=== PATIENT | female | born 1940 | race Caucasian/White ===

== ENCOUNTER 2023-09-24 11:02 | Observation (INO) | payer MEDICARE, BC ==
[~2023-09-24] VITALS: Ht 157.5 cm; Wt 75.0 kg
[2023-09-24] VITALS (9 sets, daily range): BP systolic 120–155; BP diastolic 51–66; PULSE 73–78; RESP 16–20; TEMP 97.8–98.8; O2SAT 95–100
[~2023-09-24 11:02] MED LIST: ACET325T55 PO; ADV50250 INH; ALBU17AE26 IH; AMI200T PO; APIX5TAB3 PO; CALC600T22 PO; CHOL10006 PO; CYAN250010 PO; FERR-29 PO; FLUT1BLS16 IH; METF-1203 PO; METO-395 PO; OMEG-15 PO; PANT40TA54 PO; PIOG15TA8 PO; RAMI10CA69 PO; SIMV-42 PO; ZOLP10TA PO
[2023-09-24 11:42] LABS: ALANINE AMINOTRANSFERASE 22 U/L (12-78); ALBUMIN 3.2 G/DL (3.4-5.0); ALBUMIN/GLOBULIN RATIO 0.9 (1.1-1.5); ALKALINE PHOSPHATASE 84 IU/L (46-116); ANION GAP 13 (8-16); ASPARTATE AMINO TRANSFERASE 18 U/L (10-37); BILIRUBIN,TOTAL 0.3 MG/DL (0.1-1.0); BLOOD UREA NITROGEN 37 MG/DL (7-18); CALCIUM 8.9 MG/DL (8.5-10.1); CHLORIDE 97 MMOL/L (99-107); CREATININE 1.32 MG/DL (0.40-0.90); GLUCOSE 221 MG/DL (70-104); POTASSIUM 4.7 MMOL/L (3.5-5.1); SODIUM 130 MMOL/L (135-145); TOTAL CARBON DIOXIDE 20.3 MMOL/L (24-32); TOTAL PROTEIN 6.7 G/DL (6.4-8.2); eGFR 39 ML/MIN
[2023-09-24 11:49] LABS: BASOPHILS # (AUTO) 0.1 X10'3 (0-0.2); BASOPHILS % (AUTO) 1.3 % (0-1); EOSINOPHILS % (AUTO) 0.3 % (0-6); LYMPHOCYTES # (AUTO) 0.4 X10'3 (1.1-4.8); LYMPHOCYTES % (AUTO) 4.7 % (21-51); MEAN CORPUSCULAR HEMOGLOBIN 31.1 PG (27.0-31.0); MEAN CORPUSCULAR HGB CONC 31.8 g/dL (33.0-36.5); MEAN CORPUSCULAR VOLUME 97.7 FL (78-98); MEAN PLATELET VOLUME 7.6 FL (7.4-10.4); MONOCYTES # (AUTO) 0.8 X10'3 (0-0.9); MONOCYTES % (AUTO) 8.7 % (2-12); NEUTROPHILS # (AUTO) 7.6 X10'3 (1.8-7.7); PLATELET COUNT 383 X10'3 (140-440); PRO BRAIN NATRIURETIC PEPTIDE 369 PG/ML (0-450); RED BLOOD COUNT 2.16 X10'6 (4.20-5.60); RED CELL DISTRIBUTION WIDTH 19.3 % (11.5-14.5)
[2023-09-24 11:57] LABS: HEMATOCRIT 21.1 % (35.0-45.0); HEMOGLOBIN 6.7 g/dl (12.0-16.0)
[2023-09-24 12:27] LABS: ELLIPTOCYTES FEW; HYPOCHROMASIA 1+; PLATELET ESTIMATE NORMAL; POLYCHROMASIA 1+; TEAR DROP CELLS 1+
[2023-09-24] MEDS ORDERED: magnesium 4gm in 100ml NS 100 ML IV PRN (12:35)
[2023-09-24] MEDS ORDERED: potassium Cl 20 mEq SR tablet PO PRN ×2 (12:35)
[2023-09-24] MEDS ORDERED: mag hydrox/Alum hydrox/simeth 30ml oral suspension PO PRN (12:35)
[2023-09-24] MEDS ORDERED: magnesium hydroxide 30ml (MOM) UD suspension PO PRN (12:35)
[2023-09-24] MEDS ORDERED: potassium Cl 40MEQ/1/2NS 520ml 520 ML IV PRN (12:35)
[2023-09-24] MEDS ORDERED: magnesium Cl slow-release 64mg tablet PO PRN (12:35)
[2023-09-24] MEDS ORDERED: magnesium 2GM in 50ml NS 50 ML IV PRN (12:35)
[2023-09-24] MEDS ORDERED: ondansetron 4mg rapidly disintigrating tab PO PRN (12:35)
[2023-09-24] MEDS ORDERED: ondansetron/PF 4mg/2ml inj IV PRN (12:35)
[2023-09-24] MEDS ORDERED: acetaminophen 325mg tablet PO PRN (12:35)
[2023-09-24 12:49] LABS: MAGNESIUM 1.6 MG/DL (1.5-2.4)
[2023-09-24 12:53] LABS: APTT 28 SECONDS (22-32); PROTHROMBIN TIME 10.4 SECONDS (9.0-12.0)
[2023-09-24] MEDS: normal saline 1000ml 1,000 ML IV SCH (13:03)
[2023-09-24] MEDS: acetaminophen 325mg tablet PO PRN (13:45)
[2023-09-24] MEDS ORDERED: pantoprazole 40MG/NS 100ML BAG 100 ML IV SCH (16:00)
[2023-09-24] MEDS: pantoprazole 40MG/NS 100ML BAG 100 ML IV SCH (17:41)
[2023-09-24] MEDS: K and/or MAG REPLACEMENT MC SCH (20:00)
[2023-09-24] MEDS: MESSAGE TO PHARMACY PO ONE (22:10)
[2023-09-24] MEDS ORDERED: DEXTROSE 15 GM of carb/4 tabs (each vial/BOTTLE has 4 tablets) PO PRN ×2 (22:10)
[2023-09-24] MEDS ORDERED: dextrose 50%-water 50ml dispensing syringe IV PRN ×2 (22:10)
[2023-09-24] MEDS ORDERED: glucagon, human recombinant 1mg kit SUBCUT PRN (22:10)
[2023-09-24] MEDS: insulin glargine (Lantus) pen - multi-dose SQ SCH (22:49)
[2023-09-25] VITALS (9 sets, daily range): BP systolic 125–157; BP diastolic 55–67; PULSE 75–90; RESP 15–18; TEMP 97.2–99.4; O2SAT 97–99
[2023-09-25 07:44] LABS: MEAN CORPUSCULAR HEMOGLOBIN 30.4 PG (27.0-31.0); MEAN CORPUSCULAR HGB CONC 32.6 g/dL (33.0-36.5); MEAN CORPUSCULAR VOLUME 93.2 FL (78-98); MEAN PLATELET VOLUME 7.1 FL (7.4-10.4); PLATELET COUNT 305 X10'3 (140-440); RED BLOOD COUNT 2.25 X10'6 (4.20-5.60); RED CELL DISTRIBUTION WIDTH 19.9 % (11.5-14.5); WHITE BLOOD COUNT 5.1 X10'3 (4.5-11.0)
[2023-09-25 07:53] LABS: HEMOGLOBIN 6.8 g/dl (12.0-16.0)
[2023-09-25 08:07] LABS: ALBUMIN 2.7 G/DL (3.4-5.0); ANION GAP 9 (8-16); BLOOD UREA NITROGEN 23 MG/DL (7-18); BUN/CREATININE RATIO 23.2 (10.0-20.0); CALCIUM 8.2 MG/DL (8.5-10.1); CHLORIDE 104 MMOL/L (99-107); CREATININE 0.99 MG/DL (0.40-0.90); GLUCOSE 167 MG/DL (70-104); MAGNESIUM 1.6 MG/DL (1.5-2.4); POTASSIUM 4.2 MMOL/L (3.5-5.1); SODIUM 136 MMOL/L (135-145); TOTAL CARBON DIOXIDE 23.5 MMOL/L (24-32); eCRCL 35 ML/MIN; eGFR 54 ML/MIN
[2023-09-25] MEDS: insulin Lispro (HumaLOG) vial - multi-dose SQ SCH (14:20)
[2023-09-25 18:01] LABS: HEMATOCRIT 27.1 % (35.0-45.0); HEMOGLOBIN 8.8 g/dl (12.0-16.0); MEAN CORPUSCULAR HEMOGLOBIN 30.2 PG (27.0-31.0); MEAN CORPUSCULAR HGB CONC 32.7 g/dL (33.0-36.5); MEAN CORPUSCULAR VOLUME 92.3 FL (78-98); MEAN PLATELET VOLUME 7.5 FL (7.4-10.4); PLATELET COUNT 307 X10'3 (140-440); RED BLOOD COUNT 2.93 X10'6 (4.20-5.60); WHITE BLOOD COUNT 7.2 X10'3 (4.5-11.0)
[2023-09-25] MEDS ORDERED: APIX5TAB3 PO (18:19)
== END 2023-09-25 19:30 | disposition home or self-care (01) ==
LOC: ER 11:03 → INTOOBSV 12:38 → ED HOLD 12:38 → EDBEDREQ 16:34 → PCU 3S 17:18
PROVIDERS: ADMIT Family Medicine; ATTEND Family Medicine
DX: K29.00 Acute gastritis without bleeding (principal); D62 Acute posthemorrhagic anemia; I48.0 Paroxysmal atrial fibrillation; I12.9 Hypertensive chronic kidney disease with stage 1 through stage 4 chronic kidney disease, or unspecified chronic kidney disease; E11.22 Type 2 diabetes mellitus with diabetic chronic kidney disease; N18.9 Chronic kidney disease, unspecified; J45.909 Unspecified asthma, uncomplicated; E78.5 Hyperlipidemia, unspecified; G47.00 Insomnia, unspecified; G62.9 Polyneuropathy, unspecified; H93.19 Tinnitus, unspecified ear; I35.0 Nonrheumatic aortic (valve) stenosis; K21.9 Gastro-esophageal reflux disease without esophagitis; K63.5 Polyp of colon; K44.9 Diaphragmatic hernia without obstruction or gangrene; K76.89 Other specified diseases of liver; M19.90 Unspecified osteoarthritis, unspecified site; M72.2 Plantar fascial fibromatosis; Z79.01 Long term (current) use of anticoagulants; Z79.51 Long term (current) use of inhaled steroids; Z79.84 Long term (current) use of oral hypoglycemic drugs; Z79.899 Other long term (current) drug therapy; Z87.891 Personal history of nicotine dependence; Z87.19 Personal history of other diseases of the digestive system
CPT/HCPCS: 36415; 36430; 71045; 80048; 80053; 82948; 83735; 83880; 84484; 85008; 85025; 85027; 85610; 85730; 86885; 86900; 86901; 86920; 87081; 93005; 96361; 96365; 96366; 99285; C9113; G0378; J1815; J3490; J7030; J7040; P9016

== ENCOUNTER 2023-10-05 09:37 | Emergency (ER) | payer MEDICARE, BC ==
[~2023-10-05] VITALS: Ht 157.5 cm; Wt 72.3 kg
[~2023-10-05 09:37] MED LIST changes: -METF-1203 PO; -PIOG15TA8 PO
[2023-10-05 10:10] LABS: BASOPHILS % (AUTO) 0.5 % (0-1); EOSINOPHILS # (AUTO) 0.1 X10'3 (0-0.9); EOSINOPHILS % (AUTO) 1.4 % (0-6); HEMATOCRIT 30.3 % (35.0-45.0); HEMOGLOBIN 9.6 g/dl (12.0-16.0); LYMPHOCYTES # (AUTO) 0.5 X10'3 (1.1-4.8); LYMPHOCYTES % (AUTO) 7.7 % (21-51); MEAN CORPUSCULAR HEMOGLOBIN 30.5 PG (27.0-31.0); MEAN CORPUSCULAR HGB CONC 31.8 g/dL (33.0-36.5); MEAN CORPUSCULAR VOLUME 95.8 FL (78-98); MEAN PLATELET VOLUME 6.9 FL (7.4-10.4); MONOCYTES # (AUTO) 0.7 X10'3 (0-0.9); NEUTROPHILS # (AUTO) 5.5 X10'3 (1.8-7.7); NEUTROPHILS % (AUTO) 80.4 % (42-75); PLATELET COUNT 381 X10'3 (140-440); RED BLOOD COUNT 3.16 X10'6 (4.20-5.60); WHITE BLOOD COUNT 6.8 X10'3 (4.5-11.0)
[2023-10-05 10:27] LABS: GLUCOSE 170 MG/DL (70-104)
[2023-10-05 10:28] LABS: ALBUMIN 3.3 G/DL (3.4-5.0); ANION GAP 11 (8-16); BLOOD UREA NITROGEN 14 MG/DL (7-18); BUN/CREATININE RATIO 14.7 (10.0-20.0); CHLORIDE 97 MMOL/L (99-107); CREATININE 0.95 MG/DL (0.40-0.90); LIPASE 36 U/L (16-77); POTASSIUM 4.5 MMOL/L (3.5-5.1); SODIUM 131 MMOL/L (135-145); TOTAL CARBON DIOXIDE 22.7 MMOL/L (24-32); eCRCL 36 ML/MIN; eGFR 56 ML/MIN
[2023-10-05 10:35] LABS: CALCIUM 9.2 MG/DL (8.5-10.1)
[2023-10-05] MEDS ORDERED: ONDA8TAB13 PO (14:15)
[2023-10-05] MEDS ORDERED: TRAM50TA2 PO (14:15)
[2023-10-05 14:23] VITALS: BP 169/76; PULSE 57; RESP 18; TEMP 99; O2SAT 96
[2023-10-05 17:37] LABS: OCCULT BLOOD STOOL NEGATIVE (Neg)
== END 2023-10-05 14:26 | disposition home or self-care (01) ==
LOC: ER 09:38
DX: R19.5 Other fecal abnormalities (principal); D64.9 Anemia, unspecified; Z88.2 Allergy status to sulfonamides; Z79.899 Other long term (current) drug therapy
CPT/HCPCS: 36415; 80048; 82272; 83690; 85025; 86885; 86900; 86901; 99283

== ENCOUNTER 2025-02-26 17:36 | Inpatient (IN) | payer MEDICARE, BC ==
[~2025-02-26] VITALS: Ht 154.9 cm; Wt 69.2 kg
[~2025-02-26 17:36] MED LIST changes: +ONDA-245 PO; +POLY17PO10 PO; -RAMI10CA69 PO; +RAMI10CA78 PO; +ZOLP-679 PO; -ZOLP10TA PO
--- NOTE | 2025-02-26 17:59 | Physician Documentation ---
History of Present Illness ~ Chief Complaint: Edema Stated Complaint: POSS BLOOD CLOT Time Seen by MD: 18:07 HPI This is an 85-year-old female who presents with extremity swelling, patient reports that she was seen here recently and had blood transfusion for anemia. Patient was seen by primary care provider who recommended she present to the emergency department. Medication Reconciliation Allergies: Coded Allergies: Sulfa (Sulfonamide Antibiotics) (Verified Allergy, Unknown, 09/26/22) Scheduled Amiodarone Hcl (Cordarone), 200 MG PO DAILY Calcium Carbonate (Calcium), 1 TAB PO DAILY, (Reported) Cholecalciferol (Vitamin D), 1 CAP PO DAILY, (Reported) Cyanocobalamin (Vitamin B-12) (Vitamin B12), 1 TAB PO DAILY, (Reported) Ferrous Sulfate (Iron), 2 TAB PO Q12H, (Reported) Fluticasone/Salmeterol* (Advair 250-50 Diskus*), 1 PUFFS INH Q12H, (Reported) Metoprolol Succinate (Metoprolol Succinate), 50 MG PO DAILY [place]-3/Dha/Epa/Fish Oil (Fish Oil 1,400 Mg Softgel), 1 CAP PO DAILY, (Reported) Ondansetron 8mg ODT (Ondansetron Odt), 1 TAB PO Q8H Pantoprazole Sodium (Pantoprazole Sodium), 40 MG PO BID Polyethylene Glycol 3350* (Miralax*), 1 PACKET PO HS Ramipril (Ramipril), 1 CAP PO ONCE, (Reported) Simvastatin* (Zocor*), 1 TAB PO DAILY, (Reported) Zolpidem Tartrate (Ambien), 1 TAB PO HS, (Reported) Scheduled PRN Acetaminophen (Acetaminophen), 1 TAB PO QDAY PRN PRN for pain or fever, (Reported) Albuterol (Albuterol), 1 PUFFS IH Q4H PRN for SOB or wheezing, (Reported) Discontinued Medications Apixaban (Eliquis), 0.5 TAB PO Q12H Discontinued Reason: patient no longer taking Fluticasone/Umeclidin/Vilanter (Trelegy Ellipta 200-62.5-25), 1 PUFF IH HS, (Reported) Discontinued Reason: patient no longer taking Metoprolol Succinate (Metoprolol Succinate), 25 MG PO DAILY Past Medical History Past Medical History: *CARDIOVASCULAR*, Anemia Past Surgical History: noncontributory Patient History: FH: COPD (chronic obstructive pulmonary disease) FATHER FH: colon cancer MOTHER FH: diabetes mellitus FH: heart disease CHILD CHILD FH: liver cancer MOTHER Drug Use: none Lives In: Home Physical Exam Vital Signs: Temperature: 97.5, Source: Temporal, Heart Rate: 144, Respiratory Rate: 20, BP: 179/92, Pulse Oximetry: 100, Weight: 69.200 Oxygen Flow Rate: 0 General Appearance VITALS: Reviewed and as above. GENERAL: Alert, nontoxic appearing, no apparent distress. HEENT: RESPIRATORY: No increased work of breathing, no respiratory distress, speaking in full clear sentences CHEST: CV: Edema to bilateral lower extremities and bilateral hands BACK: GI: MUSCULOSKELETAL: SKIN: NEURO: PSYCH: Progress Results/Orders Results/Orders Orders - JUAN MO MD Vl Venous (02/26/25 18:32) Page Hospitalist (02/26/25 18:39) Fill Out Med Reconciliation (02/26/25 18:39) Completed Orders - JUAN MO MD Metoprolol Succinate Er Tablet (Toprol X (02/26/25 18:15) Vl Venous (02/26/25 18:32) Procalcitonin (02/26/25 18:34) Diltiazem-Ns 100mg/100ml (Cardizem-Ns 10 (02/26/25 18:40) Vital Signs 02/26/25 02/26/25 02/26/25 17:40 18:10 19:02 Temp 97.5 Pulse 144 146 137 Resp 20 16 B/P (MAP) 179/92 158/80 (106) 164/84 Pulse Ox 100 96 O2 Flow Rate 0 0 Laboratory Tests Test 02/26/25 17:56 White Blood Count 14.2 H Red Blood Count 3.35 L Hemoglobin 9.8 L Hematocrit 29.5 L Mean Corpuscular Volume 88.2 Mean Corpuscular Hemoglobin 29.3 Mean Corpuscular Hemoglobin Concent 33.2 Red Cell Distribution Width 18.0 H Platelet Count 516 H Mean Platelet Volume 7.0 L Neutrophils (%) (Auto) 86.8 H Lymphocytes (%) (Auto) 3.9 L Monocytes (%) (Auto) 8.7 Eosinophils (%) (Auto) 0.5 Basophils (%) (Auto) 0.1 Neutrophils # (Auto) 12.3 H Lymphocytes # (Auto) 0.6 L Monocytes # (Auto) 1.2 H Eosinophils # (Auto) 0.1 Basophils # (Auto) 0.0 CBC Comment Prothrombin Time 10.2 INR International Normalized Ratio 1.0 Activated Partial Thromboplast Time 24 D-Dimer 2.10 H D-Dimer Comment Coagulation Comments Sodium Level 132 L Potassium Level 3.9 Chloride Level 96 L Carbon Dioxide Level 24.5 Anion Gap 12 Blood Urea Nitrogen 17 Creatinine 1.23 H Estimated GFR/1.73 m2 42 BUN/Creatinine Ratio 13.8 Glucose Level 257 H Calcium Level 8.5 Phosphorus Level 2.9 Magnesium Level 1.3 L Total Bilirubin 0.5 Aspartate Amino Transf (AST/SGOT) 20 Alanine Aminotransferase (ALT/SGPT) 21 Alkaline Phosphatase 96 Troponin I High Sensitivity 26 Pro-B-Type Natriuretic Peptide 8114 H Total Protein 6.5 Albumin 2.6 L Globulin 3.9 Albumin/Globulin Ratio 0.7 L Procalcitonin 0.07 Chemistry Comments EKG/XRAY/CT/US/VASC/MRI EKG : Additional Comment EKG interpreted by myself shows time of 1751, rate 143, AFib RVR, right bundle-branch block, no ST changes Chest X-Ray : Additional Comments Exam: CHEST,SINGLE VIEW CHEST RADIOGRAPH Indication: CP Technique: Single frontal view of the chest was obtained Comparison: DI CHEST,SINGLE VIEW on DOS: 02/23/25, DI CHEST,SINGLE VIEW on DOS: 09/24/23, DI CHEST,SINGLE VIEW on DOS: 09/12/23 FINDINGS: Lines and Tubes: None Lungs: Left basilar opacity with obscuration of the left hemidiaphragm No pneumothorax. Cardiomediastinal contours: Unremarkable. Mitral annulus calcification. Bones: No acute osseous abnormality. IMPRESSION: Left basilar opacity with obscuration of the left hemidiaphragm may be from pleural effusion/atelectasis/ pneumonia. Medical Decision Making Findings Patient presents to the emergency room with diffuse edema and tachycardic irregular heartbeat. Differentials include but are not limited to CHF, kidney failure, AFib RVR, electrolyte disturbances, fluid overload therefore emergent labs and imaging indicated. Chest x-ray shows effusion and patient has AFib RVR. Diltiazem drip initiated. Acute kidney injury also noted. I believe this is related to uncontrolled AFib. She is not anticoagulated we can not cardiovert her. We will admit for further treatment. Departure Admitted to Inpatient Unit: yes, to hospitalist Impression: Primary Impression: Atrial fibrillation with RVR Additional Impressions: Acute kidney injury Fluid overload Condition: Guarded Referrals: NO PRIMARY CARE PROVIDER (PCP) Signature Scribe Signature: No scribe Attestation: The note accurately reflects work and decisions made by me.Juan Mo MD 02/26/25 18:48 ANNABELLA ALATORRE [facility] Feb 26, 2025 17:59 JUAN MO MD Feb 26, 2025 18:45
[2025-02-26 18:18] LABS: BASOPHILS % (AUTO) 0.1 % (0-1); LYMPHOCYTES # (AUTO) 0.6 X10'3 (1.1-4.8); MEAN CORPUSCULAR HGB CONC 33.2 g/dL (33.0-36.5); MONOCYTES # (AUTO) 1.2 X10'3 (0-0.9); NEUTROPHILS % (AUTO) 86.8 % (42-75)
[2025-02-26 18:21] LABS: EOSINOPHILS # (AUTO) 0.1 X10'3 (0-0.9); EOSINOPHILS % (AUTO) 0.5 % (0-6); HEMATOCRIT 29.5 % (35.0-45.0); HEMOGLOBIN 9.8 g/dl (12.0-16.0); LYMPHOCYTES % (AUTO) 3.9 % (21-51); MEAN CORPUSCULAR HEMOGLOBIN 29.3 PG (27.0-31.0); MEAN CORPUSCULAR VOLUME 88.2 FL (78-98); MONOCYTES % (AUTO) 8.7 % (2-12); NEUTROPHILS # (AUTO) 12.3 X10'3 (1.8-7.7); PLATELET COUNT 516 X10'3 (140-440); RED BLOOD COUNT 3.35 X10'6 (4.20-5.60); WHITE BLOOD COUNT 14.2 X10'3 (4.5-11.0)
[2025-02-26] MEDS: metoprolol succinate 25mg (24-HOUR) SR. Tablet PO ONE (18:23)
[2025-02-26 18:27] LABS: ALANINE AMINOTRANSFERASE 21 U/L (12-78); ALBUMIN 2.6 G/DL (3.4-5.0); ALBUMIN/GLOBULIN RATIO 0.7 (1.1-1.5); ALKALINE PHOSPHATASE 96 IU/L (46-116); ANION GAP 12 (8-16); ASPARTATE AMINO TRANSFERASE 20 U/L (10-37); BILIRUBIN,TOTAL 0.5 MG/DL (0.1-1.0); BLOOD UREA NITROGEN 17 MG/DL (7-18); BUN/CREATININE RATIO 13.8 (10.0-20.0); CALCIUM 8.5 MG/DL (8.5-10.1); CHLORIDE 96 MMOL/L (99-107); CREATININE 1.23 MG/DL (0.40-0.90); GLUCOSE 257 MG/DL (70-104); POTASSIUM 3.9 MMOL/L (3.5-5.1); SODIUM 132 MMOL/L (135-145); TOTAL CARBON DIOXIDE 24.5 MMOL/L (24-32); TOTAL PROTEIN 6.5 G/DL (6.4-8.2); eCRCL 26 ML/MIN; eGFR 42 ML/MIN
--- NOTE | 2025-02-26 18:31 | RADIOLOGY REPORT ---
CHEST RADIOGRAPH Indication: CP Technique: Single frontal view of the chest was obtained Comparison: DI CHEST,SINGLE VIEW on DOS: 02/23/25, DI CHEST,SINGLE VIEW on DOS: 09/24/23, DI CHEST,SING LE VIEW on DOS: 09/12/23 FINDINGS: Lines and Tubes: None Lungs: Left basilar opacity with obscuration of the left hemidiaphragm No pneumothorax. Cardiomediastinal contours: Unremarkable. Mitral annulus calcification. Bones: No acute osseous abnormality. IMPRESSION: Left basilar opacity with obscuration of the left hemidiaphragm may be from pleural effusion/atelecta sis/ pneumonia.
[2025-02-26 18:33] LABS: PRO BRAIN NATRIURETIC PEPTIDE 8114 PG/ML (0-450)
[2025-02-26] MEDS: diltiazem-NS 100mg/100ml 100 ML IV SCH (19:02)
[2025-02-26] MEDS ORDERED: acetaminophen 325mg tablet PO PRN ×2 (19:15)
[2025-02-26] MEDS ORDERED: morphine 2 MG/ML inj. syringe IV PRN ×2 (19:15)
[2025-02-26] MEDS ORDERED: magnesium sulf-water 2g/50mL 50 ML IV PRN (19:15)
[2025-02-26] MEDS ORDERED: mag hydrox/Alum hydrox/simeth 30ml oral suspension PO PRN (19:15)
[2025-02-26] MEDS ORDERED: HYDROcodone/acetaminophen 10/325mg tab PO PRN (19:15)
[2025-02-26] MEDS ORDERED: potassium Cl 40MEQ/1/2NS 520ml 520 ML IV PRN (19:15)
[2025-02-26] MEDS ORDERED: HYDROcodone/acetaminophen 5mg/325mg tablet PO PRN (19:15)
[2025-02-26] MEDS ORDERED: potassium Cl 20 mEq SR tablet PO PRN (19:15)
[2025-02-26] MEDS ORDERED: ondansetron/PF 4mg/2ml inj IV PRN (19:15)
[2025-02-26] MEDS ORDERED: magnesium sulf-water 4G/100mL 100 ML IV PRN (19:15)
[2025-02-26 19:40] LABS: APTT 24 SECONDS (22-32); PROTHROMBIN TIME 10.2 SECONDS (9.0-12.0)
[2025-02-26] MEDS: PERFLUTREN PROTEIN-A MICROSPHR (Optison) 0.22 MG/ML 3ML VIAL IV ONE (19:41)
[2025-02-26] MEDS: K and/or MAG REPLACEMENT MC SCH (20:00)
--- NOTE | 2025-02-26 20:19 | VASCULAR REPORT ---
Bilateral lower extremity venous duplex Clinical History: Pain Comparison: None Technique: Duplex Doppler evaluation of the deep venous systems of both lower extremities from the common femora l veins to the popliteal veins including color Doppler and spectral/pulsed waveform analysis was perf ormed. Findings: RIGHT SIDE: The common femoral vein demonstrates appropriate compressibility and waveform variability. There is compressibility/patency of the great saphenous vein at the proximal thigh. The femoral vein demonstrates appropriate compressibility and waveform variability. The deep femoral vein demonstrates appropriate compressibility and waveform variability. The popliteal vein demonstrates appropriate compressibility and waveform variability. There is normal compressibility at the tibioperoneal trunk. Intraluminal thrombus and present in the gastrocnemius veins. LEFT SIDE: The common femoral vein demonstrates appropriate compressibility and waveform variability. There is compressibility/patency of the great saphenous vein at the proximal thigh. The femoral vein demonstrates appropriate compressibility and waveform variability. The deep femoral vein demonstrates appropriate compressibility and waveform variability. The popliteal vein demonstrates appropriate compressibility and waveform variability. There is normal compressibility at the tibioperoneal trunk. Impression: No right or left femoropopliteal venous thrombosis. Thrombus is present in two right gastrocnemius veins.
--- NOTE | 2025-02-26 20:39 | HISTORY AND PHYSICAL-Residence ---
History & Physical Providers to CC Resident Creating Document: OLAYINKA JUDD, JULIANNE ~ History of Present Illness Reason for Admit\Complaint: Bilateral lower extremity swelling History of Present Illness A 85-year-old female(informant: Ms. Rona Vargas, daughter, next in kin) with past medical history of the atrial fibrillation, bronchial asthma, type 2 diabetes mellitus, hypertension, GI bleed with anemia presented to the ER with a chief complaints of swelling of both lower legs since Monday. He endorses swelling of both lower leg along with generalized swelling of the body. She visited her PCP, Dr. Quentin Garcia on this afternoon for swelling. Endorses irregular heartbeat, palpitations for a brief period after coming out of the clinic. She had a recent admission at [facility] for recurrent GI bleed, anemia, generalized weakness, fall and discharged on this Monday. Endorses exaggerated GI bleed significant drop in hemoglobin after having a one dose of Eliquis which was started for AFib. She do reports leaking of IV in the left upper extremity the ER. She denied chest pain, shortness of breath, pain abdomen, abdominal distention fever, cough, pain in bilateral leg. Discussed code status with the patient and the patient wants to be full code Allergies: Coded Allergies: Sulfa (Sulfonamide Antibiotics) (Verified Allergy, Unknown, 09/26/22) Home Medications Home Medications Active Miralax* (Polyethylene Glycol) 1 Packet Packet 1 Packet PO HS 30 Days Metoprolol Succinate 25 Mg Tab.sr.24h 50 Mg PO DAILY 30 Days Ondansetron Odt (Ondansetron HCl) 8 Mg Tab.rapdis 1 Tab PO Q8H Cordarone (Amiodarone HCl) 200 Mg Tablet 200 Mg PO DAILY 30 Days Pantoprazole Sodium 40 Mg Tablet.dr 40 Mg PO BID Take 40 mg p.o. twice a day for 1 month then drop it down to 40 mg once a day. Reported Advair 250-50 Diskus* (Salmeterol Xinafoate/Fluticasone) 1 Puff Inh 1 Puffs INH Q12H 30 Days Acetaminophen 325 Mg Tablet 1 Tab PO QDAY PRN PRN 30 Days Vitamin D (Cholecalciferol) 1,000 Unit Capsule 1 Cap PO DAILY 30 Days Fish Oil 1,400 Mg Softgel ([place]-3/Dha/Epa/Fish Oil) 1 Each Capsule.dr 1 Cap PO DAILY 30 Days Iron (Ferrous Sulfate) 325 Mg Tablet 2 Tab PO Q12H 30 Days Calcium (Calcium Carbonate) 600 Mg Tablet 1 Tab PO DAILY 30 Days Vitamin B12 (Cyanocobalamin (Vitamin B-12)) 2,500 Mcg Tablet 1 Tab PO DAILY 30 Days Ambien (Zolpidem Tartrate) 10 Mg Tablet 1 Tab PO HS Albuterol 17 Gm Aerosol 1 Puffs IH Q4H PRN Zocor* (Simvastatin) 20 Mg Tablet 1 Tab PO DAILY Ramipril 10 Mg Capsule 1 Cap PO ONCE Past Medical History Past Medical History Hypertension Type 2 Diabetes mellitus Anemia with GI bleed Severe esophagitis/gastritis Esophageal candidiasis Bronchial Asthma Aortic Stenosis AFib Past Surgical History Surgical History Comment Left shoulder arthroscopy Family History Family History: FH: COPD (chronic obstructive pulmonary disease) FATHER FH: colon cancer MOTHER FH: diabetes mellitus FH: heart disease CHILD CHILD FH: liver cancer MOTHER Past Social History Social History Comment Denied smoking, alcohol , illicit drug use He do reports allergy to alcohol Smoking: Non-Smoker Drug Use: None Lives with: Alone Lives In: Home ROS All Other Systems: Reviewed and Negative ROS Reviewed in full and negative except positive pertinent as in HPI Exam Vitals: Vital Signs Date Time Temp Pulse Resp B/P (MAP) Pulse Ox O2 Delivery O2 Flow Rate FiO2 02/26/25 19:44 130 125/70 02/26/25 19:31 22 02/26/25 19:22 98 02/26/25 18:10 0 02/26/25 17:40 97.5 General: Awake , alert, and oriented x4, in mild distress HEENT: Atraumatic, normocephalic, EOMI, anicteric sclera ; pink conjunctiva. JVD is seen. Neck: Trachea midline. Supple, full range of motion, no JVD Cardiac: Irregular rhythm, regular rate . No gallop or rub. Ejection Systolic murmur of grade 2-3 out of six in mitral, tricuspid, aortic area. Respiratory: Equal breath sounds bilaterally, no tachypnea, no wheezing ,rub or rales, Chest wall is symmetric and without deformity. Gastrointestinal: Abdomen symmetric, non-distended, soft, non-tender, normal bowel sounds x4 quadrant, normoactive, no hepatosplenomegaly Musculoskeletal: Bilateral 1+ pedal edema is present. mild bruit on left lower extremity. Left upper extremity swollen. Neurological: Speech is clear, alert, and oriented x 4. No motor or sensory deficit, deep tendon reflexes normal, cerebellar intact. Cranial nerves II-XII intact. Skin: Warm and moist. Bilateral stasis eczema is present. 2 healed Scabs on left leg. reddish discoloration will with the left lower leg suggestive of non blanchable purpura. Diagnostic Data Last Recorded Lab Results: 02/26/25 17502/26/25 1756 Diagnostic Data: Laboratory Tests Test 02/26/25 17:56 Prothrombin Time 10.2 SECONDS (9.0-12.0) INR International Normalized Ratio 1.0 INR Activated Partial Thromboplast Time 24 SECONDS (22-32) D-Dimer 2.10 MG/L FEU (0-0.50) H D-Dimer Comment Coagulation Comments Advance Care Planning Advanced Care planning: Add on additional 30 min Additional Plan AFib with RVR Heart rate is in 140s EKG showing AFib with RVR of heart rate 143, right bundle branch block, no ST changes We discontinue diltiazem drip and then switched to amiodarone drip Not on anticoagulation because of very high risk of GI bleed and significant drop of hemoglobin after initiation of the Eliquis. We will continue amiodarone 200 mg p.o. b.i.d. after medication & when AFib reverted back to normal sinus rhythm. Venous thromboembolism Right gastrocnemius venous thrombus Bilateral venous Doppler showed Thrombus is present in two right gastrocnemius veins. We are not anticoagulating with heparin because of the high risk of GI bleed and with moderate anemia Patient may be a candidate for IVC filters. Patient may need to transferred to higher level of care for IVC filter placement. Possible Acute systolic heart failure Chest x-ray impression: Left basilar opacity with obscuration of the left hemidiaphragm may be from pleural effusion/atelectasis/ pneumonia EKG is showing heart rate of 143, irregular rhythm, AFib with RVR, right bundle branch ProBNP is elevated 8114 ,more than 2256 on 02/19/2025 Echocardiogram is ordered & previous echocardiogram on 09/14/2023 showed left vertebral ejection fraction of 66 5%. Mild concentric hypertrophy. Moderate stenosis Received Lasix 40 mg IV and we are continuing Lasix 40 mg IV b.i.d. dose. Continuing ramipril 10 mg, metoprolol 50 mg, ESEQUIEL Hyponatremia Hypochloremia Serum creatinine is 1.23 Sodium is 132 on chloride is 96, potassium is 3.9 Continue to monitor CMP Type 2 diabetes mellitus Ordered A1c Blood glucose is 257 On insulin hyperglycemic hypoglycemic insulin protocol with Lantus and medium dose Humalog We will continue to monitor blood glucose with a target of 140-180 Hypertension Received Lasix 40 and metoprolol 50 We will continue ramipril 10 mg, metoprolol 50 mg Continue to monitor blood pressures with a target of less than 130 Anemia secondary to GI bleed Not actively bleeding H & H is 9.8 and 29.5 Continuing ferrous sulfate 325 mg, calcium, vitamin-D, B12, pantoprazole 40 mg Ordered stool occult & will follow up with the results Asthma Held albuterol in view of tachycardia On ipratropium nebulization q.6h p.r.n. and fluticasone inhalers Moderate Aortic stenosis Ordered echocardiogram on we will follow up with the results Code status: Full code Diet: Heart healthy diet PT: Ordered Prognosis: Guarded Olayinka Judd IM resident Date of Service: Feb 26, 2025 Billing Provider: BRUCE TREJO MD, VENKATESH, RES Feb 26, 2025 20:39
[2025-02-26] MEDS: docusate sod 100mg capsule PO SCH (21:36)
[2025-02-26] MEDS: furosemide 10 MG/1 ML 10ml inj IV ONE (21:36)
[2025-02-26] MEDS ORDERED: glucagon, human recombinant 1mg kit SUBCUT PRN (21:50)
[2025-02-26] MEDS ORDERED: dextrose 50%-water 50ml dispensing syringe IV PRN ×2 (21:50)
[2025-02-26] MEDS ORDERED: DEXTROSE 15 GM of carb/4 tabs (each vial/BOTTLE has 4 tablets) PO PRN ×2 (21:50)
[2025-02-26] MEDS: simvastatin 20mg tablet PO SCH (22:00)
[2025-02-26 22:11] LABS: MAGNESIUM 1.3 MG/DL (1.5-2.4); PHOSPHORUS 2.9 MG/DL (2.3-4.5)
[2025-02-26 22:15] VITALS: BP 135/90; PULSE 139; RESP 23; TEMP 98; O2SAT 99
[2025-02-26] MEDS: insulin glargine (Lantus) pen - multi-dose SQ SCH (22:30)
[2025-02-26 22:45] VITALS: BP 138/92; PULSE 139; RESP 22
[2025-02-26 22:51] LABS: ALANINE AMINOTRANSFERASE 18 U/L (12-78); ALBUMIN 2.5 G/DL (3.4-5.0); ALBUMIN/GLOBULIN RATIO 0.7 (1.1-1.5); ALKALINE PHOSPHATASE 84 IU/L (46-116); ASPARTATE AMINO TRANSFERASE 18 U/L (10-37); BILIRUBIN,DIRECT 0.2 MG/DL (0-0.3); BILIRUBIN,TOTAL 0.4 MG/DL (0.1-1.0); FREE T4 (FREE THYROXINE) 1.88 NG/DL (0.73-1.40); THYROID STIMULATING HORMONE 0.54 ulU/ml (0.34-4.50); TOTAL PROTEIN 6.1 G/DL (6.4-8.2)
[2025-02-26 23:00] VITALS: BP 136/92; PULSE 139; RESP 22
[2025-02-26] MEDS: zolpidem 5mg tablet PO SCH (23:11)
[2025-02-26] MEDS: heparin, porcine 5000 units/ml vial SQ SCH (23:13)
[2025-02-26 23:15] VITALS: BP 164/108; PULSE 133; RESP 21
[2025-02-26 23:23] VITALS: PULSE 120; RESP 18; O2SAT 96
[2025-02-26 23:30] VITALS: BP 126/78; PULSE 120; RESP 23
[2025-02-27] VITALS (24 sets, daily range): BP systolic 115–153; BP diastolic 9–91; PULSE 59–131; RESP 14–25; TEMP 97.4–97.6; O2SAT 96–99
[2025-02-27 01:36] LABS: HEMATOCRIT 27.9 % (35.0-45.0); HEMOGLOBIN 9.4 g/dl (12.0-16.0); MEAN CORPUSCULAR HEMOGLOBIN 29.1 PG (27.0-31.0); MEAN CORPUSCULAR HGB CONC 33.5 g/dL (33.0-36.5); MEAN CORPUSCULAR VOLUME 86.9 FL (78-98); MEAN PLATELET VOLUME 6.9 FL (7.4-10.4); PLATELET COUNT 439 X10'3 (140-440); RED BLOOD COUNT 3.21 X10'6 (4.20-5.60); RED CELL DISTRIBUTION WIDTH 17.6 % (11.5-14.5); WHITE BLOOD COUNT 16.4 X10'3 (4.5-11.0)
[2025-02-27 01:59] LABS: ALANINE AMINOTRANSFERASE 20 U/L (12-78); ALBUMIN 2.3 G/DL (3.4-5.0); ALBUMIN/GLOBULIN RATIO 0.7 (1.1-1.5); ALKALINE PHOSPHATASE 77 IU/L (46-116); ANION GAP 8 (8-16); ASPARTATE AMINO TRANSFERASE 12 U/L (10-37); BILIRUBIN,TOTAL 0.4 MG/DL (0.1-1.0); BLOOD UREA NITROGEN 19 MG/DL (7-18); BUN/CREATININE RATIO 18.3 (10.0-20.0); CALCIUM 8.7 MG/DL (8.5-10.1); CHLORIDE 97 MMOL/L (99-107); CHOL/HDL RATIO 1.7 (0.00-4.99); CHOLESTEROL 121 MG/DL (0-200); CREATININE 1.04 MG/DL (0.40-0.90); GLUCOSE 182 MG/DL (70-104); HDL CHOLESTEROL 72 MG/DL (35-60); LDL CHOLESTEROL 35 MG/DL (50-100); MAGNESIUM 1.3 MG/DL (1.5-2.4); POTASSIUM 3.3 MMOL/L (3.5-5.1); SODIUM 133 MMOL/L (135-145); TOTAL CARBON DIOXIDE 28.4 MMOL/L (24-32); TOTAL PROTEIN 5.8 G/DL (6.4-8.2); TRIGLYCERIDES 79 MG/DL (20-135); eCRCL 30 ML/MIN; eGFR 50 ML/MIN
[2025-02-27] MEDS ORDERED: amiodarone 50MG/ML inj IV ONE (02:40)
[2025-02-27] MEDS ORDERED: amiodarone inj. 450 MG in dextrose 5%-water 241 ML IV SCH (02:47)
[2025-02-27] MEDS: amiodarone 150mg/dext, iso-os 100 ML IV ONE (03:17)
[2025-02-27] MEDS: potassium Cl 20 mEq SR tablet PO PRN (03:29)
[2025-02-27] MEDS: magnesium Cl slow-release 64mg tablet PO PRN (03:29)
[2025-02-27] MEDS: amiodarone/D5 360MG/200ML BAG 200 ML IV SCH (03:39)
--- NOTE | 2025-02-27 06:01 | ELECTROCARDIOGRAPH REPORT ---
[facility] Test Date: 2025-02-26 Test Time: 17:51:17 Pat Name: FAVIAN VILLA Department: EMERGENCY ROOM Room: [place] [address] A Gender: F Floral Clerk: : 1940 Requested By: ANNABELLA ALATORRE Order Number: [id number] Reading MD: Dr. Demarco Mullen Measurements Intervals [place] Rate: 143 P: 0 LA: 0 QRS: -70 QRSD: 138 T: 39 QT: 330 QTc: 509 Interpretive Statements Wide-QRS tachycardia RBBB and LAFB Electronically Signed On 02-28-2025 18:24:[address] Demarco Mullen Please click the below link to view image of tracing.
[2025-02-27 06:36] LABS: BASOPHILS % (AUTO) 0.3 % (0-1); EOSINOPHILS # (AUTO) 0.1 X10'3 (0-0.9); EOSINOPHILS % (AUTO) 0.8 % (0-6); HEMATOCRIT 26.9 % (35.0-45.0); HEMOGLOBIN 8.8 g/dl (12.0-16.0); LYMPHOCYTES # (AUTO) 0.5 X10'3 (1.1-4.8); LYMPHOCYTES % (AUTO) 4.8 % (21-51); MEAN CORPUSCULAR HEMOGLOBIN 28.7 PG (27.0-31.0); MEAN CORPUSCULAR HGB CONC 32.7 g/dL (33.0-36.5); MEAN CORPUSCULAR VOLUME 87.6 FL (78-98); MEAN PLATELET VOLUME 6.9 FL (7.4-10.4); NEUTROPHILS # (AUTO) 9.3 X10'3 (1.8-7.7); NEUTROPHILS % (AUTO) 85.1 % (42-75); PLATELET COUNT 414 X10'3 (140-440); RED BLOOD COUNT 3.07 X10'6 (4.20-5.60); RED CELL DISTRIBUTION WIDTH 17.5 % (11.5-14.5)
[2025-02-27] MEDS: INSULIN LISPRO 100 UNIT/ML INSULN.PEN MULTI-DOSE SQ SCH ×2 (07:00→23:00)
[2025-02-27] MEDS: metoprolol succinate 25mg (24-HOUR) SR. Tablet PO SCH (09:14)
[2025-02-27] MEDS: cyanocobalamin 500mcg tablet PO SCH (09:14)
[2025-02-27] MEDS: ferrous sulfate 325mg tablet PO SCH (09:15)
[2025-02-27] MEDS: calcium carbonate/vitamin D3 tablet PO SCH (09:15)
[2025-02-27] MEDS: pantoprazole 40mg Tablet.DR PO SCH (09:15)
[2025-02-27] MEDS: OMEGA-3/DHA/EPA/FISH OIL 1 EACH CAPSULE.DR PO SCH (09:15)
[2025-02-27] MEDS: amiodarone 200mg tablet PO SCH (09:16)
[2025-02-27] MEDS: cholecalciferol (vitamin D3) 1,000 unit (25mcg) tablet PO SCH (09:17)
[2025-02-27] MEDS: furosemide 10 MG/1 ML 10ml inj IV SCH (09:18)
[2025-02-27] MEDS: ipratropium 0.5 MG/2.5ML nebule IH PRN (10:32)
[2025-02-27] MEDS ORDERED: heparin 10,000 units/1 ML INJ IV PRN (11:05)
[2025-02-27] MEDS: heparin 10,000 units/1 ML INJ IV ONE (12:05)
[2025-02-27] MEDS: heparin 25,000 UNIT/250ml bag 250 ML IV PRN (12:17)
[2025-02-27] MEDS: MESSAGE TO NURSING IV ONE ×2 (12:17→20:10)
[2025-02-27 12:29] LABS: BASOPHILS # (AUTO) 0.1 X10'3 (0-0.2); BASOPHILS % (AUTO) 0.5 % (0-1); EOSINOPHILS # (AUTO) 0.1 X10'3 (0-0.9); EOSINOPHILS % (AUTO) 0.6 % (0-6); HEMATOCRIT 26.3 % (35.0-45.0); HEMOGLOBIN 8.6 g/dl (12.0-16.0); LYMPHOCYTES # (AUTO) 0.5 X10'3 (1.1-4.8); MEAN CORPUSCULAR HEMOGLOBIN 28.7 PG (27.0-31.0); MEAN CORPUSCULAR HGB CONC 32.8 g/dL (33.0-36.5); MEAN CORPUSCULAR VOLUME 87.4 FL (78-98); MEAN PLATELET VOLUME 7.3 FL (7.4-10.4); MONOCYTES # (AUTO) 1.1 X10'3 (0-0.9); MONOCYTES % (AUTO) 9.2 % (2-12); NEUTROPHILS # (AUTO) 10.3 X10'3 (1.8-7.7); NEUTROPHILS % (AUTO) 85.7 % (42-75); PLATELET COUNT 389 X10'3 (140-440); RED CELL DISTRIBUTION WIDTH 17.8 % (11.5-14.5); WHITE BLOOD COUNT 12.1 X10'3 (4.5-11.0)
[2025-02-27 12:41] LABS: APTT 23 SECONDS (22-32); PROTHROMBIN TIME 10.3 SECONDS (9.0-12.0)
--- NOTE | 2025-02-27 18:19 | CARDIOLOGY REPORT ---
APPROVED REPORT EXAM: Comprehensive 2D, Doppler, and color-flow Echocardiogram. Patient Location: 302 Blood Pressure: 115/91 mmHg Heart Rate: 77 bpm Indications Congestive Heart Failure ProBNP: 8114 Atrial Fibrillation Right Bundle Branch Block Hypertension Diabetes Edema CORPORATE JOB TITLES: Laxmi Carolina MD Previous ECHO: 11/14/24, BVC, EF: 60; modAS with LAURENCE: 1.16; GRAD: 46 / 24; PKV: 3.1; m-modMS, mitra n GRAD: 7; m-modMR; mTR; modLAE 2D Dimensions LA Diam4.5 cm IVSd 0.9 (0.7-1.1cm) LVDd 4.7 cm PWd 1.1 (0.7-1.1cm) IVSs 1.7 (0.8-1.2cm) LVDs 2.6 (2.5-4.0cm) PWs 1.4 (0.8-1.2cm) LVOT Diameter 1.92 (1.8-2.4cm) LVEF(%) 75.9 (>50%) Ao Asc Diam.3.16 cm IVC 18.32 mmFS (%) 44.7 % SV 78.2 ml CO 5.5 L/min M-Mode Dimensions Left Atrium(MM) 3.88 (2.5-4.0cm) Aortic Root 3.00 (2.2-3.7cm) Aortic Cusp Exc 1.03 (1.5-2.0cm) MV EPSS 1.6 (<0.5cm) Aortic Valve AoV Peak Daniel. 317.2 cm/s AoV VTI 69.8 cm AO Peak GR. 40.2 mmHg AO Mean GR. 22 mmHg LVOT VTI 34.97 cm LVOT Peak Daniel. 136.1 cm/s LAURENCE(VTI)/BSA 1.44 cm2/m2 LAURENCE (VTI) 1.44 cm2 Mitral Valve MV E Velocity 154.2 cm/s MV Peak Gr. 11 mmHg MV DECEL TIME 280 ms MV A Velocity 99.9 cm/s MV Mean Gr. 4 mmHg MV PHT 76 ms E/A Ratio 1.5 MVA (PHT) 2.89 cm2 MV WNdu156.3 cm/sMV VMean91.9 cm/s MVA VTI2.61 cm2MV VTI38.6 cm TDI Lateral E' P. V10.61 cm/s Medial E' P. V 8.87 cm/s E/Lateral E' 14.5 E/Medial E' 17.4 Tricuspid Valve TR P. Velocity 326 cm/s RAP ESTIMATE 10 mmHg TR Peak Gr. 43 mmHg RVSP 53 mmHg LEFT VENTRICLE Normal LV size and wall thickness. Overall systolic function is normal. Overall LVEF is 70-75%. RIGHT VENTRICLE Right ventricle is mildly dilated with adequate function. Estimated PA systolic pressure of 53 mm of mercury ATRIA Left atrium is moderately dilated. AORTIC VALVE Trileaflet AV is moderately stenotic. LAURENCE is measured at 1.44 cmsq. Peak / mean gradients of 40 / 22 mmHG. Peak velocity is measured at 3.17 m/sec. No regurgitation. MITRAL VALVE Mitral valve leaflets are thickened with moderate annular calcification and mild stenosis. Peak / mitra n gradients are 11 / 4 mmHg. Calcified chordae noted. Moderate eccentric regurgitation anteriorly dir ected. TRICUSPID VALVE The tricuspid valve is normal in structure with moderate regurgitation. PULMONIC VALVE The pulmonary valve is normal in structure with physiologic insufficiency. GREAT VESSELS The aortic root is normal in size. The ascending aorta is normal in size. IVC is normal in size and c ollapses less than 50% with inspiration. PERICARDIUM Normal pericardium. No effusion. Other Information Study Quality: Adequate Conclusion Overall LVEF is 70-75%. Normal LV size and wall thickness. Overall systolic function is normal. Right ventricle is mildly dilated with adequate function. Estimated PA systolic pressure of 53 mm of mercury Trileaflet AV is moderately stenotic. LAURENCE is measured at 1.44 cmsq. Peak / mean gradients of 40 / 2 2 mmHG. Peak velocity is measured at 3.17 m/sec. No regurgitation. Mitral valve leaflets are thickened with moderate annular calcification and mild stenosis. Peak / me an gradients are 11 / 4 mmHg. Calcified chordae noted. Moderate eccentric regurgitation anteriorly directed. The tricuspid valve is normal in structure with moderate regurgitation. Normal pericardium. No effusion.
--- NOTE | 2025-02-27 18:58 | PROGRESS NOTE ---
Daily Progress Note Providers to CC ~ Antibiotic Timeout Antibiotic Ordered?: No Subjective I saw the patient and discussed everything all labs and diagnostic workup and further care plan in presence of patient and patient's son ( who is a POA as per patient ) . Patient was discharged very recently on February 25, 2024 that she went to primary care doctor's office for monitoring of her CBC count they noticed swelling over lower legs more on right side. Further workup done in ER which showed signs of right lower extremity DVT. ( Thrombus is present in two right gastrocnemius veins. ) . Patient was started at night on subcutaneous heparin q.8 hours which was stopped due to risk of GI bleeding by night provider. After discussing risk , benefit and alternative of treatment with patient and her son in detail heparin drip was started in patient's son in patient agreed with the plan. I answered all questions to patient's satisfaction after meaningful discussion with the patient and her son. Potential complications of heparin drip discussed. Objective Vital Signs Date Time Temp Pulse Resp B/P (MAP) Pulse Ox O2 Delivery O2 Flow Rate FiO2 02/27/25 17:00 61 25 153/69 (97) Room Air 02/27/25 15:00 97.4 98 02/27/25 10:38 0.0 21 ECHO- Conclusion Overall LVEF is 70-75%. Normal LV size and wall thickness. Overall systolic function is normal. Right ventricle is mildly dilated with adequate function. Estimated PA systolic pressure of 53 mm of mercury Trileaflet AV is moderately stenotic. LAURENCE is measured at 1.44 cmsq. Peak / mean gradients of 40 / 22 mmHG. Peak velocity is measured at 3.17 m/sec. No regurgitation. Mitral valve leaflets are thickened with moderate annular calcification and mild stenosis. Peak / mean gradients are 11 / 4 mmHg. Calcified chordae noted. Moderate eccentric regurgitation anteriorly directed. The tricuspid valve is normal in structure with moderate regurgitation. Normal pericardium. No effusion. Result Diagram: 02/27/25 1146 02/27/25 0120 General-patient not in any acute distress, alert awake oriented, chronically ill-appearing HEENT-atraumatic normocephalic, neck supple without elevated JVD, no thyromegaly or carotid bruit. No lymphadenopathy bilaterally. Eyes-no icterus or pallor seen in eyes Chest-clear to auscultation bilaterally, breathing nonlabored no tachypnea, no wheezing, no crepitation, no crackles. Heart-S1-S2 normal, regular heart rate no murmur Abdomen bowel sounds positive on auscultation, soft nondistended nontender no guarding, no rigidity Skin no active skin rash, signs of chronic hyperpigmentation present over lower extremity Neurology-grossly intact, nonfocal alert awake oriented Extremity- no pedal edema able to move all 4 extremities, signs of discomfort on palpation present over right gastrocnemius muscle area. signs of chronic hyperpigmentation present over lower extremity Psychiatry - patient is not confused or agitated cooperated during physical examination Coagulation Studies Laboratory Tests Test 02/26/25 17:56 02/27/25 11:46 D-Dimer 2.10 MG/L FEU (0-0.50) H D-Dimer Comment Prothrombin Time 10.3 SECONDS (9.0-12.0) INR International Normalized Ratio 1.0 INR Activated Partial Thromboplast Time 23 SECONDS (22-32) Coagulation Comments Problem\Assessment\Plan AFib with RVR- resolved Heart rate is in 140s initially EKG showing AFib with RVR of heart rate 143, right bundle branch block, no ST changes discontinued diltiazem drip and then switched to amiodarone drip We will continue amiodarone 200 mg p.o. b.i.d. and metoprolol, AFib reverted back to normal sinus rhythm. Venous thromboembolism Right gastrocnemius venous thrombus Bilateral venous Doppler showed Thrombus is present in two right gastrocnemius veins. We are anticoagulating with heparin Patient was started at night on subcutaneous heparin q.8 hours which was stopped due to risk of GI bleeding by night provider. After discussing risk , benefit and alternative of treatment with patient and her son in detail heparin drip was started in patient's son in patient agreed with the plan. I answered all questions to patient's satisfaction after meaningful discussion with the patient and her son. Potential complications of heparin drip discussed. Patient may be a candidate for IVC filters. Possible Acute systolic heart failure Chest x-ray impression: Left basilar opacity with obscuration of the left hemidiaphragm may be from pleural effusion/atelectasis/ pneumonia EKG is showing heart rate of 143, irregular rhythm, AFib with RVR, right bundle branch ProBNP is elevated 8114 ,more than 2256 on 02/19/2025 Echocardiogram is ordered & previous echocardiogram on 09/14/2023 showed left vertebral ejection fraction of 66 5%. Mild concentric hypertrophy. Moderate stenosis Received Lasix 40 mg IV and we are continuing Lasix 40 mg IV b.i.d. dose. Continuing ramipril 10 mg, metoprolol 50 mg, ESEQUIEL Hyponatremia Hypochloremia Serum creatinine is imoproved Sodium is 132 on chloride is 96, potassium is 3.9 Continue to monitor CMP Type 2 diabetes mellitus Hemoglobin A1c 5.1 on February 19, 2025 Blood glucose is 257 On insulin hyperglycemic hypoglycemic insulin protocol We will continue to monitor blood glucose with a target of 140-180 Hypertension Received Lasix 40 and metoprolol 50 We will continue ramipril 10 mg, metoprolol 50 mg Continue to monitor blood pressures with a target of less than 130 Anemia secondary to GI bleed Not actively bleeding H & H is 9.8 and 29.5 Continuing ferrous sulfate 325 mg, calcium, vitamin-D, B12, pantoprazole 40 mg Ordered stool occult & will follow up with the results Asthma Held albuterol in view of tachycardia On ipratropium nebulization q.6h p.r.n. and fluticasone inhalers Moderate Aortic stenosis Ordered echocardiogram on we will follow up with the results Patient's current condition is guarded we will continue to follow patient in a.m. patient is high-risk patient and currently full code status Date of Service: Feb 27, 2025 Billing Provider: NILDA LING MD Common Visit Codes: [id number] INP/OBS CARE(HIGH) NILDA LING MD Feb 27, 2025 18:58
[2025-02-27 19:40] LABS: HEMATOCRIT 26.6 % (35.0-45.0); HEMOGLOBIN 8.4 g/dl (12.0-16.0); MEAN CORPUSCULAR HEMOGLOBIN 28.1 PG (27.0-31.0); MEAN CORPUSCULAR HGB CONC 31.5 g/dL (33.0-36.5); MEAN CORPUSCULAR VOLUME 89.1 FL (78-98); MEAN PLATELET VOLUME 7.4 FL (7.4-10.4); PLATELET COUNT 410 X10'3 (140-440); RED BLOOD COUNT 2.98 X10'6 (4.20-5.60); RED CELL DISTRIBUTION WIDTH 17.8 % (11.5-14.5); WHITE BLOOD COUNT 12.4 X10'3 (4.5-11.0)
[2025-02-27 19:55] LABS: % IRON SATURATION 5 % (11-46); IRON 13 UG/DL (49-151); TOTAL IRON BINDING CAPACITY 247 UG/DL (259-388)
[2025-02-27] MEDS: polyethylene glycol 3350 17gm powd pack PO SCH (22:01)
[2025-02-28] VITALS (9 sets, daily range): BP systolic 128–153; BP diastolic 54–64; PULSE 61–71; RESP 16–27; TEMP 96.9–97.7; O2SAT 93–97
[2025-02-28 01:09] LABS: HEMATOCRIT 23.9 % (35.0-45.0); HEMOGLOBIN 8.1 g/dl (12.0-16.0); MEAN CORPUSCULAR HEMOGLOBIN 29.2 PG (27.0-31.0); MEAN CORPUSCULAR HGB CONC 33.6 g/dL (33.0-36.5); MEAN CORPUSCULAR VOLUME 86.8 FL (78-98); MEAN PLATELET VOLUME 7.3 FL (7.4-10.4); PLATELET COUNT 368 X10'3 (140-440); RED BLOOD COUNT 2.76 X10'6 (4.20-5.60); RED CELL DISTRIBUTION WIDTH 17.5 % (11.5-14.5); WHITE BLOOD COUNT 10.9 X10'3 (4.5-11.0)
[2025-02-28 01:16] LABS: ALBUMIN 2.1 G/DL (3.4-5.0); ANION GAP 9 (8-16); BLOOD UREA NITROGEN 17 MG/DL (7-18); BUN/CREATININE RATIO 15.9 (10.0-20.0); CALCIUM 8.2 MG/DL (8.5-10.1); CHLORIDE 98 MMOL/L (99-107); CREATININE 1.07 MG/DL (0.40-0.90); GLUCOSE 186 MG/DL (70-104); POTASSIUM 3.7 MMOL/L (3.5-5.1); SODIUM 134 MMOL/L (135-145); TOTAL CARBON DIOXIDE 27.5 MMOL/L (24-32); eCRCL 30 ML/MIN; eGFR 49 ML/MIN
[2025-02-28] MEDS: MESSAGE TO NURSING IV ONE ×4 (01:49→22:11)
[2025-02-28 02:01] LABS: MAGNESIUM 1.3 MG/DL (1.5-2.4)
[2025-02-28 07:37] LABS: BASOPHILS # (AUTO) 0.1 X10'3 (0-0.2); BASOPHILS % (AUTO) 0.7 % (0-1); EOSINOPHILS # (AUTO) 0.2 X10'3 (0-0.9); EOSINOPHILS % (AUTO) 2.1 % (0-6); HEMATOCRIT 24.1 % (35.0-45.0); HEMOGLOBIN 7.9 g/dl (12.0-16.0); LYMPHOCYTES # (AUTO) 0.8 X10'3 (1.1-4.8); LYMPHOCYTES % (AUTO) 8.9 % (21-51); MEAN CORPUSCULAR HEMOGLOBIN 28.9 PG (27.0-31.0); MEAN CORPUSCULAR VOLUME 87.6 FL (78-98); MEAN PLATELET VOLUME 7.5 FL (7.4-10.4); NEUTROPHILS # (AUTO) 6.8 X10'3 (1.8-7.7); NEUTROPHILS % (AUTO) 77.3 % (42-75); PLATELET COUNT 355 X10'3 (140-440); RED BLOOD COUNT 2.75 X10'6 (4.20-5.60); RED CELL DISTRIBUTION WIDTH 17.9 % (11.5-14.5); WHITE BLOOD COUNT 8.8 X10'3 (4.5-11.0)
[2025-02-28 07:56] LABS: ALANINE AMINOTRANSFERASE 14 U/L (12-78); ALBUMIN/GLOBULIN RATIO 0.6 (1.1-1.5); ALKALINE PHOSPHATASE 61 IU/L (46-116); ANION GAP 7 (8-16); ASPARTATE AMINO TRANSFERASE 19 U/L (10-37); BILIRUBIN,TOTAL 0.2 MG/DL (0.1-1.0); BLOOD UREA NITROGEN 15 MG/DL (7-18); BUN/CREATININE RATIO 13.9 (10.0-20.0); CALCIUM 8.4 MG/DL (8.5-10.1); CHLORIDE 99 MMOL/L (99-107); CREATININE 1.08 MG/DL (0.40-0.90); GLUCOSE 161 MG/DL (70-104); MAGNESIUM 1.3 MG/DL (1.5-2.4); POTASSIUM 4.1 MMOL/L (3.5-5.1); SODIUM 135 MMOL/L (135-145); TOTAL CARBON DIOXIDE 29.3 MMOL/L (24-32); TOTAL PROTEIN 5.1 G/DL (6.4-8.2); eCRCL 29 ML/MIN; eGFR 48 ML/MIN
[2025-02-28] MEDS ORDERED: bisacodyl 5mg tablet.DR PO PRN (11:15)
[2025-02-28 12:19] LABS: HEMOGLOBIN 8.9 g/dl (12.0-16.0); MEAN CORPUSCULAR HEMOGLOBIN 28.7 PG (27.0-31.0); MEAN CORPUSCULAR HGB CONC 32.9 g/dL (33.0-36.5); MEAN CORPUSCULAR VOLUME 87.4 FL (78-98); MEAN PLATELET VOLUME 7.2 FL (7.4-10.4); PLATELET COUNT 409 X10'3 (140-440); RED BLOOD COUNT 3.09 X10'6 (4.20-5.60); RED CELL DISTRIBUTION WIDTH 17.5 % (11.5-14.5); WHITE BLOOD COUNT 9.9 X10'3 (4.5-11.0)
[2025-02-28] MEDS: magnesium hydroxide 30ml (MOM) UD suspension PO PRN (12:55)
[2025-02-28 16:45] LABS: OCCULT BLOOD STOOL NEGATIVE (Neg)
[2025-02-28 18:48] LABS: HEMATOCRIT 26.7 % (35.0-45.0); HEMOGLOBIN 8.9 g/dl (12.0-16.0); MEAN CORPUSCULAR HEMOGLOBIN 28.9 PG (27.0-31.0); MEAN CORPUSCULAR HGB CONC 33.4 g/dL (33.0-36.5); MEAN CORPUSCULAR VOLUME 86.4 FL (78-98); PLATELET COUNT 412 X10'3 (140-440); RED BLOOD COUNT 3.08 X10'6 (4.20-5.60); RED CELL DISTRIBUTION WIDTH 17.6 % (11.5-14.5); WHITE BLOOD COUNT 10.8 X10'3 (4.5-11.0)
--- NOTE | 2025-02-28 19:21 | PROGRESS NOTE ---
Daily Progress Note Providers to CC ~ Antibiotic Timeout Antibiotic Ordered?: No Subjective Patient is seen in presence of her daughter and her son . she is very eager to go home. Risk and benefit of treatment again explained in detail. She is high- risk and details of situation explained to patient's family members. We will continue with heparin drip all labs and diagnostic workup results discussed in visit. Dulcolax and prune juice ordered for constipation. Objective Vital Signs Date Time Temp Pulse Resp B/P (MAP) Pulse Ox O2 Delivery O2 Flow Rate FiO2 02/28/25 08:00 Room Air 02/28/25 06:30 84 02/28/25 06:00 96.9 22 153/64 (93) 96 02/27/25 10:38 0.0 21 Result Diagram: 02/28/25 1158 02/28/25 0631 General-patient not in any acute distress, alert awake oriented, chronically ill-appearing HEENT-atraumatic normocephalic, neck supple without elevated JVD, no thyromegaly or carotid bruit. No lymphadenopathy bilaterally. Eyes-no icterus or pallor seen in eyes Chest-clear to auscultation bilaterally, breathing nonlabored no tachypnea, no wheezing, no crepitation, no crackles. Heart-S1-S2 normal, regular heart rate no murmur Abdomen bowel sounds positive on auscultation, soft nondistended nontender no guarding, no rigidity Skin no active skin rash, signs of chronic hyperpigmentation present over lower extremity Neurology-grossly intact, nonfocal alert awake oriented Extremity- no pedal edema able to move all 4 extremities, signs of discomfort on palpation present over right gastrocnemius muscle area. signs of chronic hyperpigmentation present over lower extremity Psychiatry - patient is not confused or agitated cooperated during physical examination Coagulation Studies Laboratory Tests Test 02/26/25 17:56 02/27/25 11:46 02/28/25 18:40 D-Dimer 2.10 MG/L FEU (0-0.50) H D-Dimer Comment Prothrombin Time 10.3 SECONDS (9.0-12.0) INR International Normalized Ratio 1.0 INR Activated Partial Thromboplast Time 23 SECONDS (22-32) APTT (Heparin Protocol) 62 SECONDS (45-75) Coagulation Comments Problem\Assessment\Plan AFib with RVR- resolved Heart rate is in 140s initially EKG showing AFib with RVR of heart rate 143, right bundle branch block, no ST changes discontinued diltiazem drip and then switched to amiodarone drip We will continue amiodarone 200 mg p.o. b.i.d. and metoprolol, AFib reverted back to normal sinus rhythm. Venous thromboembolism Right gastrocnemius venous thrombus Bilateral venous Doppler showed Thrombus is present in two right gastrocnemius veins. We are anticoagulating with heparin Patient was started at night on subcutaneous heparin q.8 hours which was stopped due to risk of GI bleeding by night provider. After discussing risk , benefit and alternative of treatment with patient and her son in detail heparin drip was started in patient's son in patient agreed with the plan. I answered all questions to patient's satisfaction after meaningful discussion with the patient and her son. Potential complications of heparin drip discussed. Patient may be a candidate for IVC filters. Possible Acute systolic heart failure Chest x-ray impression: Left basilar opacity with obscuration of the left hemidiaphragm may be from pleural effusion/atelectasis/ pneumonia EKG is showing heart rate of 143, irregular rhythm, AFib with RVR, right bundle branch ProBNP is elevated 8114 ,more than 2256 on 02/19/2025 Echocardiogram is ordered & previous echocardiogram on 09/14/2023 showed left vertebral ejection fraction of 66 5%. Mild concentric hypertrophy. Moderate stenosis Received Lasix 40 mg IV and we are continuing Lasix 40 mg IV b.i.d. dose. Continuing ramipril 10 mg, metoprolol 50 mg, ESEQUIEL Hyponatremia Hypochloremia Serum creatinine is imoproved Sodium is 132 on chloride is 96, potassium is 3.9 Continue to monitor CMP Type 2 diabetes mellitus Hemoglobin A1c 5.1 on February 19, 2025 Blood glucose is 257 On insulin hyperglycemic hypoglycemic insulin protocol We will continue to monitor blood glucose with a target of 140-180 Hypertension Received Lasix 40 and metoprolol 50 We will continue ramipril 10 mg, metoprolol 50 mg Continue to monitor blood pressures with a target of less than 130 Anemia secondary to GI bleed Not actively bleeding H & H is 9.8 and 29.5 Continuing ferrous sulfate 325 mg, calcium, vitamin-D, B12, pantoprazole 40 mg Ordered stool occult & will follow up with the results Asthma Held albuterol in view of tachycardia On ipratropium nebulization q.6h p.r.n. and fluticasone inhalers Moderate Aortic stenosis Ordered echocardiogram on we will follow up with the results Patient's current condition is guarded we will continue to follow patient in a.m. patient is high-risk patient and currently full code status Date of Service: Feb 28, 2025 Billing Provider: NILDA LING MD Common Visit Codes: [id number] INP/OBS CARE(HIGH) NILDA LING MD Feb 28, 2025 19:21
[2025-03-01 01:40] LABS: BASOPHILS % (AUTO) 0.4 % (0-1); EOSINOPHILS # (AUTO) 0.2 X10'3 (0-0.9); EOSINOPHILS % (AUTO) 1.5 % (0-6); HEMATOCRIT 25.2 % (35.0-45.0); HEMOGLOBIN 8.5 g/dl (12.0-16.0); LYMPHOCYTES # (AUTO) 0.7 X10'3 (1.1-4.8); LYMPHOCYTES % (AUTO) 6.8 % (21-51); MEAN CORPUSCULAR HEMOGLOBIN 28.9 PG (27.0-31.0); MEAN CORPUSCULAR HGB CONC 33.5 g/dL (33.0-36.5); MEAN CORPUSCULAR VOLUME 86.3 FL (78-98); MONOCYTES # (AUTO) 1.3 X10'3 (0-0.9); MONOCYTES % (AUTO) 12.2 % (2-12); NEUTROPHILS # (AUTO) 8.5 X10'3 (1.8-7.7); NEUTROPHILS % (AUTO) 79.1 % (42-75); PLATELET COUNT 381 X10'3 (140-440); RED BLOOD COUNT 2.93 X10'6 (4.20-5.60); RED CELL DISTRIBUTION WIDTH 17.7 % (11.5-14.5); WHITE BLOOD COUNT 10.7 X10'3 (4.5-11.0)
[2025-03-01 01:56] LABS: ALANINE AMINOTRANSFERASE 18 U/L (12-78); ALBUMIN 2.2 G/DL (3.4-5.0); ALBUMIN/GLOBULIN RATIO 0.7 (1.1-1.5); ALKALINE PHOSPHATASE 73 IU/L (46-116); ANION GAP 4 (8-16); ASPARTATE AMINO TRANSFERASE 14 U/L (10-37); BILIRUBIN,TOTAL 0.3 MG/DL (0.1-1.0); BLOOD UREA NITROGEN 17 MG/DL (7-18); BUN/CREATININE RATIO 13.9 (10.0-20.0); CALCIUM 8.9 MG/DL (8.5-10.1); CHLORIDE 94 MMOL/L (99-107); CREATININE 1.22 MG/DL (0.40-0.90); GLUCOSE 191 MG/DL (70-104); MAGNESIUM 1.6 MG/DL (1.5-2.4); POTASSIUM 3.9 MMOL/L (3.5-5.1); SODIUM 129 MMOL/L (135-145); TOTAL CARBON DIOXIDE 31.2 MMOL/L (24-32); TOTAL PROTEIN 5.5 G/DL (6.4-8.2); eCRCL 26 ML/MIN; eGFR 42 ML/MIN
[2025-03-01 02:00] VITALS: BP 142/57; PULSE 68; RESP 23; TEMP 97.6; O2SAT 95
[2025-03-01] MEDS: MESSAGE TO NURSING IV ONE ×2 (02:16→10:05)
[2025-03-01 06:00] VITALS: BP 143/58; PULSE 69; RESP 20; TEMP 97.3; O2SAT 95
[2025-03-01 08:00] VITALS: RESP 16; O2SAT 93
[2025-03-01 11:00] VITALS: BP 118/48; PULSE 70; RESP 23; TEMP 97.3; O2SAT 95
[2025-03-01] MEDS ORDERED: FER325T PO (13:00)
[2025-03-01] MEDS ORDERED: APIX5TAB3 PO (13:00)
[2025-03-01] MEDS ORDERED: furosemide 40mg/4ml inj IV SCH (15:33)
[2025-03-01] MEDS ORDERED: MESSAGE TO NURSING IV ONE (15:50)
[2025-03-01 16:35] LABS: EOSINOPHILS # (AUTO) 0.1 X10'3 (0-0.9); MEAN CORPUSCULAR HGB CONC 33.3 g/dL (33.0-36.5)
[2025-03-01 16:37] LABS: BASOPHILS % (AUTO) 0.1 % (0-1); EOSINOPHILS % (AUTO) 0.6 % (0-6); HEMATOCRIT 25.9 % (35.0-45.0); HEMOGLOBIN 8.6 g/dl (12.0-16.0); LYMPHOCYTES # (AUTO) 0.6 X10'3 (1.1-4.8); LYMPHOCYTES % (AUTO) 4.9 % (21-51); MEAN CORPUSCULAR HEMOGLOBIN 28.8 PG (27.0-31.0); MEAN CORPUSCULAR VOLUME 86.5 FL (78-98); MEAN PLATELET VOLUME 7.3 FL (7.4-10.4); MONOCYTES # (AUTO) 1.4 X10'3 (0-0.9); MONOCYTES % (AUTO) 12.7 % (2-12); NEUTROPHILS # (AUTO) 9.2 X10'3 (1.8-7.7); NEUTROPHILS % (AUTO) 81.7 % (42-75); PLATELET COUNT 415 X10'3 (140-440); RED CELL DISTRIBUTION WIDTH 17.8 % (11.5-14.5); WHITE BLOOD COUNT 11.3 X10'3 (4.5-11.0)
--- NOTE | 2025-03-01 18:54 | DISCHARGE SUMMARY ---
Discharge Summary Providers to CC ~ Discharge Summary Admission Diagnosis: A FIB WITH RVR,BILATERAL PEDAL EDEMA Hospital Course DATE OF ADMISSION: February 26, 2025 DATE OF DISCHARGE: March 01, 2025 CBC testing done on March 01, 2025 WBC 11.3, hemoglobin 8.6 hematocrit 25.9 platelet count 415. CMP done on March 01, 2025 sodium 129 potassium 3.9 creatinine 1.22 GFR 42. Serum iron 247, 13. ECHOCARDIOGRAM-Conclusion Overall LVEF is 70-75%. Normal LV size and wall thickness. Overall systolic function is normal. Right ventricle is mildly dilated with adequate function. Estimated PA systolic pressure of 53 mm of mercury Trileaflet AV is moderately stenotic. LAURENCE is measured at 1.44 cmsq. Peak / mean gradients of 40 / 22 mmHG. Peak velocity is measured at 3.17 m/sec. No regurgitation. Mitral valve leaflets are thickened with moderate annular calcification and mild stenosis. Peak / mean gradients are 11 / 4 mmHg. Calcified chordae noted. Moderate eccentric regurgitation anteriorly directed. The tricuspid valve is normal in structure with moderate regurgitation. Normal pericardium. No effusion. VL VENOUS-Impression: No right or left femoropopliteal venous thrombosis. Thrombus is present in two right gastrocnemius veins. CHEST,SINGLE VIEW-IMPRESSION: Left basilar opacity with obscuration of the left hemidiaphragm may be from pleural effusion/atelectasis/ pneumonia. Discharge Diagnosis\\Comment: AFib with RVR- resolved, Venous thromboembolism, Right gastrocnemius venous thrombus, Possible Acute systolic heart failure, ESEQUIEL Hyponatremia HypochloremiaType 2 diabetes mellitus, Hypertension, anemia of chronic disease, Asthma Moderate Aortic stenosis Operations\\Procedures: None Consultants: None Complications: None Condition on DC: Stable New Medications: Apixaban (Eliquis) 5 Mg Tablet 2.5 MG PO BID for 30 Days, #30 TAB Ferrous Sulfate (Ferrous Sulfate) 325 Mg (65 Mg Iron) Tablet 650 MG PO Q12H for 30 Days, #60 TAB Continued Medications: Acetaminophen (Acetaminophen) 325 Mg Tablet 1 TAB PO QDAY PRN PRN for pain or fever for 30 Days, #30 TAB Albuterol (Albuterol) 17 Gm Aerosol 1 PUFFS IH Q4H PRN for SOB or wheezing Amiodarone Hcl (Cordarone) 200 Mg Tablet 200 MG PO DAILY for 30 Days, #30 TAB Cholecalciferol (Vitamin D) 1,000 Unit Capsule 1 CAP PO DAILY for 30 Days, #30 CAP 0 Refills Cyanocobalamin (Vitamin B-12) (Vitamin B12) 2,500 Mcg Tablet 1 TAB PO DAILY for 30 Days, #30 TAB 0 Refills Fluticasone/Salmeterol* (Advair 250-50 Diskus*) 1 Puff Inh 1 PUFFS INH Q12H for 30 Days, #1 EA Metoprolol Succinate (Metoprolol Succinate) 25 Mg Tab.sr.24h 50 MG PO DAILY for 30 Days, #30 TAB.SR [place]-3/Dha/Epa/Fish Oil (Fish Oil 1,400 Mg Softgel) 1 Each Capsule.dr 1 CAP PO DAILY for 30 Days, #30 CAP 0 Refills Ondansetron 8mg ODT (Ondansetron Odt) 8 Mg Tab.rapdis 1 TAB PO Q8H for nausea/vomiting, #30 TAB 0 Refills Pantoprazole Sodium (Pantoprazole Sodium) 40 Mg Tablet.dr 40 MG PO BID, #90 TAB.SR Take 40 mg p.o. twice a day for 1 month then drop it down to 40 mg once a day. Polyethylene Glycol 3350* (Miralax*) 1 Packet Packet 1 PACKET PO HS for 30 Days, #30 PACKET Ramipril (Ramipril) 10 Mg Capsule 1 CAP PO ONCE Simvastatin* (Zocor*) 20 Mg Tablet 1 TAB PO DAILY Zolpidem Tartrate (Ambien) 10 Mg Tablet 1 TAB PO HS Discontinued Medications: Calcium Carbonate (Calcium) 600 Mg Tablet 1 TAB PO DAILY for 30 Days, #30 TAB 0 Refills Ferrous Sulfate (Iron) 325 Mg Tablet 2 TAB PO Q12H for 30 Days, #60 TAB 0 Refills Discharge Summary: As per admitting provider's history and physical note" A 85-year-old female(informant: Ms. Rona Vargas, daughter, next in kin) with past medical history of the atrial fibrillation, bronchial asthma, type 2 diabetes mellitus, hypertension, GI bleed with anemia presented to the ER with a chief complaints of swelling of both lower legs since Monday. He endorses swelling of both lower leg along with generalized swelling of the body. She visited her PCP, Dr. Marquis Garcia on this afternoon for swelling. Endorses irregular heartbeat, palpitations for a brief period after coming out of the clinic. She had a recent admission at [facility] for recurrent GI bleed, anemia, generalized weakness, fall and discharged on this Monday. Endorses exaggerated GI bleed significant drop in hemoglobin after having a one dose of Eliquis which was started for AFib. She do reports leaking of IV in the left upper extremity the ER. She denied chest pain, shortness of breath, pain abdomen, abdominal distention fever, cough, pain in bilateral leg. During hospitalization patient was treated for AFib with RVR- resolved Heart rate is in 140s initially EKG showing AFib with RVR of heart rate 143, right bundle branch block, no ST changes discontinued diltiazem drip and then switched to amiodarone drip We will continue amiodarone 200 mg p.o. b.i.d. and metoprolol, AFib reverted back to normal sinus rhythm. Venous thromboembolism Right gastrocnemius venous thrombus Bilateral venous Doppler showed Thrombus is present in two right gastrocnemius veins. We are anticoagulating with heparin Patient was started at night on subcutaneous heparin q.8 hours which was stopped due to risk of GI bleeding by night provider. After discussing risk , benefit and alternative of treatment with patient and her son in detail heparin drip was started in patient's son in patient agreed with the plan. I answered all questions to patient's satisfaction after meaningful discussion with the patient and her son. Potential complications of heparin drip discussed. Patient is started on IV heparin drip for 48 hour and then patient is transition to p.o. Eliquis. Patient is discharged on low-dose of Eliquis due to her recent history of GI bleeding in her age above 81 with multiple comorbidities Patient may be a candidate for IVC filter if she will bleed on Eliquis. Possible Acute systolic heart failure Chest x-ray impression: Left basilar opacity with obscuration of the left hemidiaphragm may be from pleural effusion/atelectasis/ pneumonia EKG is showing heart rate of 143, irregular rhythm, AFib with RVR, right bundle branch ProBNP is elevated 8114 ,more than 2256 on 02/19/2025 Echocardiogram is ordered & previous echocardiogram on 09/14/2023 showed left vertebral ejection fraction of 66 5%. Mild concentric hypertrophy. Moderate stenosis Received Lasix 40 mg IV and we are continued Lasix 40 mg IV Continuing ramipril 10 mg, metoprolol 50 mg, ESEQUIEL Hyponatremia Hypochloremia Serum creatinine is imoproved Sodium is 132 on chloride is 96, potassium is 3.9 Continue to monitor CMP Type 2 diabetes mellitus Hemoglobin A1c 5.1 on February 19, 2025 Blood glucose is 257 On insulin hyperglycemic hypoglycemic insulin protocol We will continue to monitor blood glucose with a target of 140-180 Hypertension Received Lasix 40 and metoprolol 50 We will continue ramipril 10 mg, metoprolol 50 mg Continue to monitor blood pressures with a target of less than 130 Anemia of chronic disease Not actively bleeding H & H is 9.8 and 29.5 Continuing ferrous sulfate 325 mg, calcium, vitamin-D, B12, pantoprazole 40 mg Ordered stool occult & will follow up with the results Asthma Held albuterol in view of tachycardia On ipratropium nebulization q.6h p.r.n. and fluticasone inhalers Moderate Aortic stenosis Ordered echocardiogram and results mentioned above Patient is seen in presence of her daughter and her son . she is very eager to go home. Risk and benefit of treatment again explained in detail. She is high- risk and details of situation explained to patient's family members .i saw the patient and discussed everything all labs and diagnostic workup and further care plan in presence of patient and patient's son ( who is a POA as per patient ) .Follow-up with primary care physician in outpatient setting in 1-2 week. Continue to monitor hemoglobin and hematocrit weekly for 1st month and then as recommended by PCP. Activity as tolerated. Please read the side effects of all your medication. Repeat Doppler ultrasound for left lower extremity in 3-6 months with PCP in outpatient setting. Patient also we will get benefit in getting referral to client experience specialist in outpatient setting. Activity as tolerated. General-patient not in any acute distress, alert awake oriented, chronically ill-appearing HEENT-atraumatic normocephalic, neck supple without elevated JVD, no thyromegaly or carotid bruit. No lymphadenopathy bilaterally. Eyes-no icterus or pallor seen in eyes Chest-clear to auscultation bilaterally, breathing nonlabored no tachypnea, no wheezing, no crepitation, no crackles. Heart-S1-S2 normal, regular heart rate no murmur Abdomen bowel sounds positive on auscultation, soft nondistended nontender no guarding, no rigidity Skin no active skin rash, signs of chronic hyperpigmentation present over lower extremity Neurology-grossly intact, nonfocal alert awake oriented Extremity- no pedal edema able to move all 4 extremities, no signs of discomfort on palpation present over right gastrocnemius muscle area. signs of chronic hyperpigmentation present over lower extremity Psychiatry - patient is not confused or agitated cooperated during physical ex amination *Problems/Diagnosis: (1) DVT (deep venous thrombosis) Total Time Spent on D/C: > 30 Minutes Date of Service: Mar 01, 2025 Billing Provider: NILDA LING MD Common Visit Codes: [id number] DISCH DAY >30min NILDA LING MD Mar 01, 2025 18:32
== END 2025-03-01 16:52 | disposition home health service (06) | DRG 299 ==
LOC: ER 17:37 → UNDOADMIN 19:17 → ED HOLD 19:17 → PCU 3S 21:50 → ED HOLD 22:25
PROVIDERS: ADMIT Internal Medicine Critical Care Medicine; ATTEND Internal Medicine
DX: I82.461 Acute embolism and thrombosis of right calf muscular vein (principal); I50.21 Acute systolic (congestive) heart failure; E87.1 Hypo-osmolality and hyponatremia; N17.9 Acute kidney failure, unspecified; J45.909 Unspecified asthma, uncomplicated; I48.91 Unspecified atrial fibrillation; I11.0 Hypertensive heart disease with heart failure; D63.8 Anemia in other chronic diseases classified elsewhere; E11.9 Type 2 diabetes mellitus without complications; E87.8 Other disorders of electrolyte and fluid balance, not elsewhere classified; I35.0 Nonrheumatic aortic (valve) stenosis; I45.10 Unspecified right bundle-branch block; Z79.01 Long term (current) use of anticoagulants; Z79.51 Long term (current) use of inhaled steroids; Z80.0 Family history of malignant neoplasm of digestive organs; Z83.3 Family history of diabetes mellitus; Z85.05 Personal history of malignant neoplasm of liver; Z88.2 Allergy status to sulfonamides; Z83.6 Family history of other diseases of the respiratory system
CPT/HCPCS: 36415; 71045; 80048; 80053; 80061; 80076; 82272; 82948; 83540; 83550; 83735; 83880; 84100; 84145; 84439; 84443; 84484; 85025; 85027; 85379; 85610; 85730; 87081; 93005; 93306; 93970; 94640; 94760; 96365; 97110; 97116; 97161; 99285; G0378; J0282; J1644; J1815; J1938; J3490